=== PATIENT | male | born 1960 | race Asian ===

== ENCOUNTER 2016-12-23 22:37 | Emergency (ER) | payer BC, MEDICAID, OTHER ==
[~2016-12-23] VITALS: Ht 167.6 cm; Wt 73.7 kg
[~2016-12-23 22:37] MED LIST: BENA25MI OR; DOCU240C PO; LORC10TA PO; MS C15TA7 PO; NEUR300C OR
[2016-12-23 22:47] VITALS: BP 152/98; PULSE 71; RESP 14; TEMP 98.3; O2SAT 97
--- NOTE | 2016-12-24 00:08 | PD ---
HPI Chief Complaint: Foreign Body Time Seen by Provider: 00:05 Travel History International Travel<30 days: No Contact w/Intl Traveler<30days: No Traveled to known affect area: No History of Present Illness HPI 56-year-old male presents to the emergency department by private transportation for complaint of retained foreign body sensation to the left eye. Patient has noted symptoms since last evening around 8 PM while watering his yard. Patient denies any known foreign body that may have dropped into his eye. Patient has had symptoms all day and due to persistence of symptoms decided to come to the emergency for evaluation. Patient denies any change in vision. Patient has had tearing sensation but no purulent drainage. Patient's eyes has not been swollen or closed with purulent drainage or crusting. Patient wears reading glasses but does not wear corrective lenses. Patient has had no fever or chills. Patient is not diabetic. Patient denies any known trauma. Patient attempted to flush his eyes at home. No known chemical exposure. PFSH Past Medical History Narrative Medical Arthritis hepatitis seizure; plate c-spine Arthritis: Yes Cancer: No Cardiovascular Problems: No Cerebrovascular Accident: No Diabetes: No Diminished Hearing: No Endocrine: No Gastrointestinal Disorders: Yes (POLYPS REMOVED FROM INTESTINES YEARLY) GERD: Yes Genitourinary: Yes Hepatitis: Yes (B) Hiatal Hernia: No Immune Disorder: No Kidney Stones: Yes Musculoskeletal: Yes Neurologic: Yes Psychiatric: No Reproductive: No Respiratory: No Seizures: Yes (PT STATES "POSSIBLE") Thyroid Disease: No Past Surgical History Body Medical Devices: PLATE NECK Pacemaker: No Social History Alcohol Use: Yes (OCC) Tobacco Use: No Allergies-Medications (Allergen,Severity, Reaction): Coded Allergies: Adhesives (Unverified Allergy, Severe, 12/23/16) Dilaudid (Verified Allergy, Severe, Rash, 12/23/16) Iodine (Verified Allergy, Severe, RASH, 12/23/16) Latex (Verified Allergy, Severe, RASH, HIVES, 12/23/16) Reported Meds & Prescriptions Reported Meds & Active Scripts Active Erythromycin Opth Oint 5 Mg/Gm Oint 1 Applic LEFT EYE QID Review of Systems Except as stated in HPI: all other systems reviewed are Neg General / Constitutional: No: Fever, Chills Eyes: Positive: Foreign Body Sensation, Pain, Tearing, No: Diploplia, Blurred Vision, Photophobia, Blind Spots, Visual changes HENT: No: Headaches, Congestion Cardiovascular: No: Chest Pain or Discomfort Respiratory: No: Shortness of Breath Gastrointestinal: No: Nausea, Vomiting Neurologic: No: Weakness, Dizziness, Syncope, Headache, Change in Mentation Psychiatric: No: Anxiety Hematologic/Lymphatic: No: Lymph Node Enlargement Physical Exam Narrative GENERAL: Well-developed well-nourished male in no acute distress no respiratory distress SKIN: Warm and dry. HEAD: Normocephalic. EYES: No scleral icterus. Left eye injection with tearing/drainage; no purulent drainage; no gross hyphema; no obvious foreign body within without lid eversion; fluorescein uptake at the 3 o'clock position; no upper or lower lid edema; extraocular muscles intact. Visual acuity: Right eye 20/50 left eye 20/ 50 both eyes 20/25 NECK: Supple, trachea midline. No JVD or lymphadenopathy. Data Data Last Documented VS Vital Signs Date Time Temp Pulse Resp B/P Pulse Ox O2 Delivery O2 Flow Rate FiO2 12/24/16 01:25 78 18 146/88 99 12/23/16 22:47 98.3 Orders Proparacaine 0.5% Opth Soln (Alcaine 0.5 (12/24/16 00:15) Eye Irrigation (12/24/16 00:05) Tetanus/Diphtheria Tox Adult (Tetanus/Di (12/24/16 01:00) Erythromycin 0.5% Opth Oint (Ilotycin 0. (12/24/16 01:15) MDM Medical Decision Making Medical Screen Exam Complete: Yes Emergency Medical Condition: Yes Medical Record Reviewed: Yes Differential Diagnosis Retained foreign body, corneal abrasion, corneal ulceration, conjunctivitis, iritis, cellulitis Narrative Course Tetanus status updated; left eye irrigated following proparacaine anesthetic drops 1 L normal saline per veronica lens; left eye reevaluated persistent fluorescein uptake at the 3 o'clock position Diagnosis Primary Impression: Corneal abrasion, left Qualified Code: S05.02XA - Corneal abrasion, left, initial encounter Referrals: [facility] 1 day Patient Instructions: General Instructions Additional Instructions: Apply eye ointment to left eye 4 times daily Apply warm or cool moist compresses to left eye throughout the day for 5-10 minutes at a time for comfort purposes May take as tolerated ibuprofen 600 mg as often as every 6 hours as needed for discomfort associated with inflammation 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
[2016-12-24] MEDS ORDERED: PROPARACAINE HCL 0.5% OPHT SOLN 15 ML BTL LEFT EYE ONE (00:15)
[2016-12-24] MEDS ORDERED: ERYTOIN10 LEFT EYE (00:55)
[2016-12-24] MEDS ORDERED: TETANUS/DIPHTHERIA TOXOID ADULT 0.5 ML VIAL IM ONE (01:00)
[2016-12-24] MEDS ORDERED: ERYTHROMYCIN 0.5% OPTH OINT 3.5 GM TUBO LEFT EYE ONE (01:15)
[2016-12-24 01:25] VITALS: BP 146/88
== END 2016-12-24 01:24 | disposition home or self-care (01) ==
LOC: PHED 22:37 → PHEFT 12-24 01:24
DX: S05.02XA Injury of conjunctiva and corneal abrasion without foreign body, left eye, initial encounter (principal); X58.XXXA Exposure to other specified factors, initial encounter; Y93.H9 Activity, other involving exterior property and land maintenance, building and construction; Y92.007 Garden or yard of unspecified non-institutional (private) residence as the place of occurrence of the external cause; Z23 Encounter for immunization
CPT/HCPCS: 90471; 90714